=== PATIENT | female | born 1995 | race American Indian/Alaskan Native ===

== ENCOUNTER 2017-07-04 13:00 | Emergency (ER) | payer SELFPAY ==
--- NOTE | 2017-07-04 15:15 | Emergency Department Report ---
Blank Doc - Documentation Documentation: Patient is a 22-year-old Cym[place] female who's complaining of some vaginal bleeding. Patient states yesterday she woke up and the bed was covered in blood. She's had some crampy lower abdominal pain. Patient states she thinks she is approximate 4 months . Patient states she is planning on having an and does not want to keep the baby. Patient has not had an ultrasound during this . Patie abdomen does appear to be well above the umbilicus the patient most likely is greater than 4 months . Ultrasound will be done to confirm gestational age as well as rule out abdomen because he the bleeding that the patient had. Nt
--- NOTE | 2017-07-04 17:18 | Emergency Department Report ---
ED Female HPI - General Chief complaint: Abdominal Pain Stated complaint: ABD PAINS/4-5MONTHS PREG. Time Seen by Provider: 07/04/17 14:59 Source: patient Mode of arrival: Ambulatory Limitations: No Limitations - History of Present Illness Initial comments: Patient is a 22-year-old [place] female who's complaining of some vaginal bleeding. Patient states yesterday she woke up and the bed was covered in blood. She's had some crampy lower abdominal pain. Patient states she thinks she is approximate 4 months . Patient states she is planning on having an and does not want to keep the baby. Patient has not had an ultrasound during this . Patie abdomen does appear to be well above the umbilicus the patient most likely is greater than 4 months . Ultrasound will be done to confirm gestational age as well as rule out abdomen because he the bleeding that the patient had. - Related Data Allergies Allergy/AdvReac Type Severity Reaction Status Date / Time No Known Allergies Allergy Unverified 07/04/17 13:25 ED Review of Systems ROS: Stated complaint: ABD PAINS/4-5MONTHS PREG. Other details as noted in HPI Comment: All other systems reviewed and negative ED Past Medical Hx - Past Medical History Previous Medical History?: No - Surgical History Past Surgical History?: No - Social History Smoking Status: Never Smoker Substance Use Type: None ED Physical Exam - General Limitations: No Limitations General appearance: alert, in no apparent distress - Head Head exam: Present: atraumatic, normocephalic - Eye Eye exam: Present: normal appearance - ENT ENT exam: Present: mucous membranes moist - Neck Neck exam: Present: normal inspection - Respiratory Respiratory exam: Present: normal lung sounds bilaterally. Absent: respiratory distress - Cardiovascular Cardiovascular Exam: Present: regular rate, normal rhythm. Absent: systolic murmur, diastolic murmur, rubs, gallop - GI/Abdominal GI/Abdominal exam: Present: soft, distended, normal bowel sounds - Extremities Exam Extremities exam: Present: normal inspection - Back Exam Back exam: Present: normal inspection - Neurological Exam Neurological exam: Present: alert, oriented X3 - Psychiatric Psychiatric exam: Present: normal affect, normal mood - Skin Skin exam: Present: warm, dry, intact, normal color. Absent: rash ED Course Vital Signs 07/04/17 13:21 Temperature 98.2 F Pulse Rate 104 H Respiratory 16 Rate Blood Pressure 122/75 O2 Sat by Pulse 99 Oximetry ED Medical Decision Making - Lab Data Lab Results 07/04/17 Range/Units 16:12 HCG, Quant < 2 (0-4) mIU/mL - Medical Decision Making Patient is a 22-year-old [place] female with abdominal distention and took a test approximately 2 months ago while incarcerated which was positive she's had some abdominal distention and has some vaginal bleeding several days ago and feels as though she may have miscarried. Patient had ultrasound done here today which was negative as well as a beta Quant that was negative as well. Patient is not patient may have miscarried sometime in the last several months and was having some abnormal menses secondary to transitioning from being tonight. Patient will be discharged home at this time. Critical care attestation.: If time is entered above; I have spent that time in minutes in the direct care of this critically ill patient, excluding procedure time. ED Disposition Clinical Impression: Abdominal distension, Allergic rhinitis, Missed Disposition: - TO HOME OR SELFCARE Is pt being admited?: No Does the pt Need Aspirin: No Condition: Stable Additional Instructions: Please take Claritin for seasonal allergies. Please follow-up with your routine OPERATING SYSTEM PROGRAMMER for further care and evaluation of the abnormal periods that should have any since miscarrying Referrals: PRIMARY CARE [Primary Care Provider] - 3-5 Days
[2017-07-04 17:41] VITALS: BP 121/72
--- NOTE | 2017-07-04 18:00 | Ultrasound Report ---
FINAL REPORT EXAM: US PELVIC COMPLETE HISTORY: vag bleed 1 week ago, unknown gest age TECHNIQUE: Ultrasound of the pelvis using transabdominal and transvaginal imaging PRIORS: None. FINDINGS: Uterus: Uterus is normal in size and normal and homogeneous in echogenicity without focal fibroid formation. The uterus measures 5.9 x 2.4 x 4.1 cm in size. Intrauterine gestation: The endometrial thickness measures 4.0 mm which is normal. No fluid in the endometrial canal is seen. No evidence for intrauterine is identified. Ovaries: Both ovaries appear normal in size and echogenicity with normal blood flow bilaterally. The right ovary measures 4.0 x 2.2 x 3.1 cm and the left ovary measures 3.6 x 1.9 x 3.1 cm in size. There is a complex focus in the right ovary measuring 1.7 cm. Correlation with a quantitative beta HCG level is noted. The ultrasound appearance suggests a hemorrhagic cyst rather than an extra uterine Other: There is no evidence for solid adnexal mass is seen. There is no free fluid in the cul-de-sac. IMPRESSION: 1. No evidence for an intrauterine identified 2. Complex cyst in the right ovary is noted which has the ultrasound appearance of a hemorrhagic cyst. However, correlation with a quantitative beta HCG level would be helpful to exclude totally ectopic
== END 2017-07-04 17:39 | disposition home or self-care (01) ==
LOC: ED 13:00
DX: O02.1 Missed abortion (principal); Z3A.16 16 weeks gestation of pregnancy
CPT/HCPCS: 36415; 76830; 76856; 84702; 99284

== ENCOUNTER 2018-08-22 12:53 | Emergency (ER) | payer SELFPAY | END 2018-08-22 13:54 | disposition left against medical advice (07) | LOC: ED 12:53 | DX: N93.9 Abnormal uterine and vaginal bleeding, unspecified (principal); Z53.21 Procedure and treatment not carried out due to patient leaving prior to being seen by health care provider ==

== ENCOUNTER 2019-05-18 23:07 | Emergency (ER) | payer OTHER ==
[2019-05-19 00:07] VITALS: BP 122/68
[2019-05-19 01:17] LABS: Basophils # (Auto) 0.1 K/mm3 (0.0-0.1); Basophils % (Auto) 0.6 % (0.0-1.8); Eosinophils # (Auto) 0.1 K/mm3 (0.0-0.4); Eosinophils % (Auto) 1.1 % (0.0-4.3); Hematocrit 37.3 % (30.3-42.9); Hemoglobin 12.8 gm/dl (10.1-14.3); Lymphocytes # (Auto) 2.5 K/mm3 (1.2-5.4); Lymphocytes % (Auto) 27.9 % (13.4-35.0); Mean Corpuscular HGB Conc 34 % (30-34); Mean Corpuscular Volume 93 fl (79-97); Monocytes # (Auto) 0.5 K/mm3 (0.0-0.8); Monocytes % (Auto) 6.1 % (0.0-7.3); Platelet Count 240 K/mm3 (140-440); Red Blood Count 4.03 M/mm3 (3.65-5.03); Red Cell Distribution Width 13.6 % (13.2-15.2)
[2019-05-19 01:46] LABS: Alanine Aminotransferase 16 units/L (7-56); Albumin 4.6 g/dL (3.9-5); BUN/Creatinine Ratio 23; Blood Urea Nitrogen 14 mg/dL (7-17); Calcium 10.2 mg/dL (8.4-10.2); Hemolysis Index 7
[2019-05-19 02:41] LABS: Bacteria,Urine 1+ /HPF (Negative); Bilirubin,Urine NEG (Negative); Blood,Urine NEG (Negative); Color,Urine Yellow (Yellow); Mucus,Urine 3+ /HPF; Protein,Urine <15 mg/dL mg/dL (Negative)
== END 2019-05-19 04:18 | disposition left against medical advice (07) ==
LOC: ED 23:07
DX: R10.30 Lower abdominal pain, unspecified (principal); Z53.21 Procedure and treatment not carried out due to patient leaving prior to being seen by health care provider
CPT/HCPCS: 36415; 80053; 81001; 83690; 84703; 85025

== ENCOUNTER 2019-05-30 20:49 | Emergency (ER) | payer OTHER ==
[2019-05-30 20:56] VITALS: BP 111/67
--- NOTE | 2019-05-30 22:26 | Event Note ---
ED Screening Note Date of service: 05/30/19 Time: 22:23 ED Screening Note: 23 y/o female comes to ER for spotting and lower abdominal pain. LMP 02/27/19 Has not started care. This initial assessment/diagnostic orders/clinical plan/treatment(s) is/are subject to change based on patients health status, clinical progression and re- assessment by fellow clinical providers in the ED. Further treatment and workup at subsequent clinical providers discretion. Patient/guardian urged not to elope from the ED as their condition may be serious if not clinically assessed and managed. Initial orders include:
[2019-05-30 22:59] LABS: Basophils % (Auto) 0.4 % (0.0-1.8); Eosinophils # (Auto) 0.1 K/mm3 (0.0-0.4); Eosinophils % (Auto) 1.5 % (0.0-4.3); Hematocrit 37.8 % (30.3-42.9); Hemoglobin 12.7 gm/dl (10.1-14.3); Lymphocytes % (Auto) 23.3 % (13.4-35.0); Mean Corpuscular HGB Conc 34 % (30-34); Mean Corpuscular Volume 93 fl (79-97); Monocytes # (Auto) 0.7 K/mm3 (0.0-0.8); Monocytes % (Auto) 8.2 % (0.0-7.3); Platelet Count 258 K/mm3 (140-440); Red Blood Count 4.06 M/mm3 (3.65-5.03); Red Cell Distribution Width 13.7 % (13.2-15.2)
[2019-05-31 00:17] LABS: Bilirubin,Urine NEG (Negative); Blood,Urine NEG (Negative); Color,Urine Yellow (Yellow); Mucus,Urine 2+ /HPF; Protein,Urine <15 mg/dL mg/dL (Negative); Urobilinogen,Urine < 2.0 mg/dL (<2.0)
--- NOTE | 2019-05-31 00:28 | Ultrasound Report ---
ULTRASOUND OBSTETRIC Indication: spotting and pelvic pain Findings: There is a single, living intrauterine . [place]-rump length = 1.96 cm = 8 weeks, 4 day(s). heart rate is 166 beats per minute. The ovaries are normal. There is no free fluid. Impression: Single, living intrauterine with estimated sonographic age of 8 weeks, 4 day(s). Signer Name: Jabari Maxwell MD Signed: 05/31/2019 12:24 AM Workstation Name: [id number]
--- NOTE | 2019-05-31 00:44 | Emergency Department Report ---
ED Female HPI - General Chief complaint: Abdominal Pain Stated complaint: ABD PAIN/ Time Seen by Provider: 05/30/19 22:22 Source: patient Mode of arrival: Ambulatory Limitations: No Limitations - History of Present Illness Initial comments: 23 y/o female comes to ER for spotting and lower abdominal pain. LMP 02/27/19. G1 Has not started care. MD Complaint: vaginal bleeding, pelvic pain -: This evening - Related Data Previous Rx's Medication Instructions Recorded Last Taken Type Vit-Fe Fumar-FA [ 1 tab PO QDAY #90 tablet 05/31/19 Unknown Rx Vitamin] Allergies Allergy/AdvReac Type Severity Reaction Status Date / Time No Known Allergies Allergy Verified 08/22/18 12:54 ED Review of Systems ROS: Stated complaint: ABD PAIN/ Other details as noted in HPI Comment: All other systems reviewed and negative ED Past Medical Hx - Past Medical History Previous Medical History?: No - Surgical History Past Surgical History?: No - Social History Smoking Status: Never Smoker Substance Use Type: None - Medications Home Medications: Home Medications Medication Instructions Recorded Confirmed Last Taken Type Vit-Fe Fumar-FA [ 1 tab PO QDAY #90 tablet 05/31/19 Unknown Rx Vitamin] ED Physical Exam - General Limitations: No Limitations General appearance: alert, in no apparent distress - Head Head exam: Present: atraumatic, normocephalic - Eye Eye exam: Present: normal appearance - ENT ENT exam: Present: mucous membranes moist - GI/Abdominal GI/Abdominal exam: Present: soft, normal bowel sounds - Neurological Exam Neurological exam: Present: alert, oriented X3, normal gait - Psychiatric Psychiatric exam: Present: normal affect, normal mood - Skin Skin exam: Present: warm, dry, intact, normal color. Absent: rash ED Course Vital Signs 05/30/19 20:55 Temperature 98.4 F Pulse Rate 75 Respiratory 14 Rate Blood Pressure 111/67 O2 Sat by Pulse 100 Oximetry ED Medical Decision Making - Lab Data Result diagrams: 05/30/19 22:37 - Radiology Data Radiology results: report reviewed Patient: IDA DELGADO MR#: [id number] : 1995 Acct:[id number] Age/Sex: 23 / F ADM Date: 05/30/19 Loc: ED Attending Dr: Ordering Physician: ANIVAL ASENCIO Date of Service: 05/30/19 Procedure(s): US OB <= 14 weeks fetus Accession Number(s): [id number] cc: ANIVAL ASENCIO ULTRASOUND OBSTETRIC Indication: spotting and pelvic pain Findings: There is a single, living intrauterine . [place]-rump length = 1.96 cm = 8 weeks, 4 day(s). heart rate is 166 beats per minute. The ovaries are normal. There is no free fluid. Impression: Single, living intrauterine with estimated sonographic age of 8 weeks, 4 day(s). Signer Name: Jabari Maxwell MD Signed: 05/31/2019 12:24 AM Workstation Name: [id number] Transcribed By: SS Dictated By: Jabari Maxwell MD Electronically Authenticated By: Jabari Maxwell MD Signed Date/Time: 05/31/1923 DD/ TD/TT: - Medical Decision Making 23 y/o female comes to ER for spotting and lower abdominal pain. LMP 02/27/19 Has not started care. Critical care attestation.: If time is entered above; I have spent that time in minutes in the direct care of this critically ill patient, excluding procedure time. ED Disposition Clinical Impression: Qualifiers: Weeks of gestation: 8 weeks Qualified Code(s): Z3A.08 - 8 weeks gestation of Disposition: DC-01 TO HOME OR SELFCARE Is pt being admited?: No Does the pt Need Aspirin: No Condition: Stable Instructions: Abdominal Pain (ED) Additional Instructions: You are 8 weeks . Take vitamins daily as prescribed. Follow- up with an LARRY OPERATOR provider I have listed several below for your convenience. Prescriptions: Vit-Fe Fumar-FA [ Vitamin] 1 tab PO QDAY #90 tablet Referrals: PRIMARY CARE, [Primary Care Provider] - 3-5 Days ELLIE SANDERS MD [Staff Physician] - 3-5 Days TORIBIO HARMON MD [Staff Physician] - 3-5 Days TRAY CARIAS MD [Staff Physician] - 3-5 Days
== END 2019-05-31 01:00 | disposition home or self-care (01) ==
LOC: ED 20:49
DX: O46.91 Antepartum hemorrhage, unspecified, first trimester (principal); Z3A.01 Less than 8 weeks gestation of pregnancy; Z88.8 Allergy status to other drugs, medicaments and biological substances
CPT/HCPCS: 36415; 76801; 81001; 84702; 85025; 86850; 86900; 86901

== ENCOUNTER 2019-07-28 18:13 | Emergency (ER) | payer SELFPAY ==
[2019-07-28 18:24] VITALS: BP 125/75
[2019-07-28 18:45] LABS: Hematocrit 33.6 % (30.3-42.9); Hemoglobin 11.5 gm/dl (10.1-14.3); Mean Corpuscular HGB Conc 34 % (30-34); Mean Corpuscular Volume 91 fl (79-97); Platelet Count 225 K/mm3 (140-440); Red Blood Count 3.68 M/mm3 (3.65-5.03); Red Cell Distribution Width 14.3 % (13.2-15.2)
[2019-07-28 18:48] LABS: Bacteria,Urine 1+ /HPF (Negative); Bilirubin,Urine NEG (Negative); Blood,Urine NEG (Negative); Color,Urine Yellow (Yellow); Mucus,Urine 2+ /HPF; Protein,Urine <15 mg/dL mg/dL (Negative); Urobilinogen,Urine < 2.0 mg/dL (<2.0)
--- NOTE | 2019-07-28 19:51 | Emergency Department Report ---
ED HPI - General Chief complaint: Vaginal Bleeding Stated complaint: 18 WKS /BLEEDING/PAIN Time Seen by Provider: 07/28/19 19:45 Source: patient Mode of arrival: Ambulatory Limitations: No Limitations - History of Present Illness Initial comments: Mr Martinez is a 24-year-old -Swedish female who is G1, . Patient presents for abdominal cramping bilateral lower with vaginal spotting x1 episode today. She denies fevers or chills. There is no vaginal bleeding at this time. There is no back pain. There is no vaginal discharge. Patient denies concern for STI. She is adamant about declining vaginal exam. She defers to [facility]. There is no other history. There is no modifying factors. Last menstrual cycle was March 2019. MD Complaint: abdominal pain, vaginal bleeding (spotting ) Onset/Timin -: days(s) Location: abdomen Radiation: LLQ, RLQ Severity: mild Severity scale (0 -10): 2 Quality: cramping Consistency: constant Improves with: none Worsens with: none Associated symptoms: vaginal bleeding, dysuria. denies: nausea/vomiting, vaginal discharge, abdominal pain, headache, rash Vaginal bleeding: light :: Yes Number of weeks : 18 OB History - Current : no complications Last menstrual period: 04/04/19 Pre-jesus care: followed by OB - Related Data : 1 Para: 1 Ab: 0 Previous Rx's Medication Instructions Recorded Last Taken Type Vit-Fe Fumar-FA [ 1 tab PO QDAY #90 tablet 05/31/19 Unknown Rx Vitamin] Acetaminophen [Tylenol] 650 mg PO QID PRN #30 capsule 07/28/19 Unknown Rx cephALEXin [Keflex] 500 mg PO BID 7 Days #14 cap 07/28/19 Unknown Rx Allergies Allergy/AdvReac Type Severity Reaction Status Date / Time No Known Allergies Allergy Verified 08/22/18 12:54 ED Review of Systems ROS: Stated complaint: 18 WKS /BLEEDING/PAIN Other details as noted in HPI Constitutional: denies: chills, fever Eyes: denies: eye pain, eye discharge, vision change ENT: denies: ear pain, throat pain Respiratory: denies: cough, shortness of breath, wheezing Cardiovascular: denies: chest pain, palpitations Endocrine: no symptoms reported Gastrointestinal: abdominal pain. denies: nausea, vomiting, diarrhea, melena Genitourinary: denies: urgency, dysuria, discharge Musculoskeletal: denies: back pain, joint swelling, arthralgia Skin: denies: rash, lesions Neurological: denies: headache, weakness, paresthesias Psychiatric: as per HPI Hematological/Lymphatic: denies: easy bleeding, easy bruising ED Past Medical Hx - Past Medical History Previous Medical History?: No - Surgical History Past Surgical History?: No - Social History Smoking Status: Never Smoker Substance Use Type: None - Medications Home Medications: Home Medications Medication Instructions Recorded Confirmed Last Taken Type Vit-Fe Fumar-FA [ 1 tab PO QDAY #90 tablet 05/31/19 Unknown Rx Vitamin] Acetaminophen [Tylenol] 650 mg PO QID PRN #30 capsule 07/28/19 Unknown Rx cephALEXin [Keflex] 500 mg PO BID 7 Days #14 cap 07/28/19 Unknown Rx ED Physical Exam - General Limitations: No Limitations General appearance: alert, in no apparent distress - Head Head exam: Present: atraumatic, normocephalic - Eye Eye exam: Present: normal appearance, PERRL, EOMI Pupils: Present: normal accommodation - ENT ENT exam: Present: mucous membranes moist - Neck Neck exam: Present: normal inspection, full ROM. Absent: tenderness, meningismus, lymphadenopathy, thyromegaly - Respiratory Respiratory exam: Present: normal lung sounds bilaterally, wheezes. Absent: respiratory distress, rhonchi, stridor - Cardiovascular Cardiovascular Exam: Present: regular rate, normal rhythm. Absent: systolic murmur, diastolic murmur, rubs, gallop - GI/Abdominal GI/Abdominal exam: Present: soft, normal bowel sounds. Absent: distended, tenderness, guarding, rebound, rigid, bruit, hernia - Rectal Rectal exam: Present: deferred - External exam: Absent: erythema - Extremities Exam Extremities exam: Present: normal inspection, full ROM, normal capillary refill. Absent: tenderness, pedal edema, joint swelling, calf tenderness - Back Exam Back exam: Present: normal inspection, full ROM. Absent: tenderness, CVA tenderness (R), muscle spasm, vertebral tenderness - Neurological Exam Neurological exam: Present: alert, oriented X3, CN II-XII intact, normal gait, reflexes normal. Absent: motor sensory deficit - Psychiatric Psychiatric exam: Present: normal affect, normal mood - Skin Skin exam: Present: warm, dry, intact, normal color. Absent: rash ED Course Vital Signs 07/28/19 18:17 Temperature 98.1 F Pulse Rate 117 H Respiratory 16 Rate Blood Pressure 125/75 O2 Sat by Pulse 100 Oximetry ED Medical Decision Making - Lab Data Result diagrams: 07/28/19 18:32 Labs 07/28/19 07/28/19 07/28/19 18:28 18:32 18:32 WBC 10.8 RBC 3.68 Hgb 11.5 Hct 33.6 MCV 91 MCH 31 MCHC 34 RDW 14.3 Plt Count 225 HCG, Quant 63595 H Urine Color Yellow Urine Turbidity Clear Urine pH 6.0 Ur Specific [place] 1.020 Urine Protein <15 mg/dl Urine Glucose (UA) Neg Urine Ketones Neg Urine Blood Neg Urine Nitrite Neg Urine Bilirubin Neg Urine Urobilinogen < 2.0 Ur Leukocyte Esterase Neg Urine WBC (Auto) 1.0 Urine RBC (Auto) 2.0 U Epithel Cells (Auto) 1.0 Urine Bacteria (Auto) 1+ Urine Mucus 2+ - Radiology Data Radiology results: report reviewed, image reviewed Findings Reporting MD: Destiny Mcleod Dictation Time: July 28, 2019 19:52 W[facility] Site Coordinator: Not available Physician Recruiter Date: ULTRASOUND OBSTETRIC INDICATION: Vaginal bleeding and pain in . COMPARISON: Obstetrical ultrasound, 05/30/2019 Findings: There is a single intrauterine . BPD = 3.5 cm = 16 weeks, 5 day(s). Head circumference = 13 cm = 16 weeks, 5 day(s). Abdominal circumference = 11.8 cm = 17 weeks, 4 day(s). Femur length = 2.0 cm = 16 weeks, 0 day(s). Overall estimated sonographic age = 16 weeks, 5 day(s). heart rate is 152 beats per minute. position is breech. Placenta is posterior and grade 0 . Amniotic fluid volume within normal limits. Impression: 1. Single living intrauterine with estimated sonographic age of 16 weeks, 5 day(s). Signer Name: Destiny Mcleod MD Signed: 07/28/2019 7:52 PM Workstation Name: [id number] - Medical Decision Making OB US 16 weeks and 5 days, FHR: 152 , UA: mild leuk, huber, wbc, hr is improved with ivfs given in ed. there is no fever or chills, no n/v, no active bleeding at this time. pt declines vagina exam. plan: keflex, tylenol, follow up with OBGYN in 2-3 days. vital signs improved, pt is tolerating po intake at this time. Critical care attestation.: If time is entered above; I have spent that time in minutes in the direct care of this critically ill patient, excluding procedure time. ED Disposition Clinical Impression: Vaginal bleeding during , Threatened miscarriage, Dysuria Qualifiers: Weeks of gestation: 16 weeks Qualified Code(s): Z3A.16 - 16 weeks gestation of Disposition: DC- TO HOME OR SELFCARE Is pt being admited?: No Does the pt Need Aspirin: No Condition: Stable Instructions: (ED), Threatened Miscarriage (ED) Prescriptions: cephALEXin [Keflex] 500 mg PO BID 7 Days #14 cap Acetaminophen [Tylenol] 650 mg PO QID PRN #30 capsule PRN Reason: pain Referrals: TORIBIO HARMON MD [Staff Physician] - 3-5 Days Forms: Work/School Release Form(ED) Time of Disposition: 21:37
[2019-07-28] MEDS ORDERED: SODIUM CHLORIDE 0.9% 1000 ML 1,000 ML IV ONE (19:57)
--- NOTE | 2019-07-28 20:57 | Ultrasound Report ---
ULTRASOUND OBSTETRIC INDICATION: Vaginal bleeding and pain in . COMPARISON: Obstetrical ultrasound, 05/30/2019 Findings: There is a single intrauterine . BPD = 3.5 cm = 16 weeks, 5 day(s). Head circumference = 13 cm = 16 weeks, 5 day(s). Abdominal circumference = 11.8 cm = 17 weeks, 4 day(s). Femur length = 2.0 cm = 16 weeks, 0 day(s). Overall estimated sonographic age = 16 weeks, 5 day(s). heart rate is 152 beats per minute. position is breech. Placenta is posterior and grade 0 . Amniotic fluid volume within normal limits. Impression: 1. Single living intrauterine with estimated sonographic age of 16 weeks, 5 day(s). Signer Name: Destiny Mcleod MD Signed: 07/28/2019 8:52 PM Workstation Name: [id number]
== END 2019-07-28 21:46 | disposition home or self-care (01) ==
LOC: ED 18:13
DX: O20.0 Threatened abortion (principal); O26.892 Other specified pregnancy related conditions, second trimester; R30.0 Dysuria; Z3A.16 16 weeks gestation of pregnancy; Z79.899 Other long term (current) drug therapy
CPT/HCPCS: 36415; 76805; 81001; 84702; 85027; 99284; J7030

== ENCOUNTER 2019-12-13 22:23 | Outpatient (CLI) | payer OTHER ==
[2019-12-13 22:43] VITALS: BP 111/67
[2019-12-13] MEDS ORDERED: LACTATED RINGERS 1,000 ML ONE (23:13)
[2019-12-13] MEDS ORDERED: LACTATED RINGERS 1,000 ML IV ONE (23:30)
== END 2019-12-14 01:05 | disposition home or self-care (01) ==
LOC: APU 22:23 → TRG 22:23
PROVIDERS: ATTEND Obstetrics & Gynecology
DX: O62.9 Abnormality of forces of labor, unspecified (principal); Z3A.36 36 weeks gestation of pregnancy
CPT/HCPCS: 59025; J7120; 96360

== ENCOUNTER 2019-12-17 21:30 | Outpatient (CLI) | payer OTHER ==
[2019-12-17 21:44] VITALS: BP 135/89
== END 2019-12-17 22:41 | disposition home or self-care (01) ==
LOC: TRG 21:30 → APU 21:35 → TRG 22:41
PROVIDERS: ATTEND Obstetrics & Gynecology
DX: O47.1 False labor at or after 37 completed weeks of gestation (principal); Z3A.37 37 weeks gestation of pregnancy
CPT/HCPCS: 59025; Q0177

== ENCOUNTER 2019-12-26 23:44 | Outpatient (CLI) | payer OTHER ==
[2019-12-27 00:09] VITALS: BP 114/69
[2019-12-27] MEDS ORDERED: LACTATED RINGERS 1,000 ML IV ONE (01:34)
--- NOTE | 2019-12-27 02:46 | Ultrasound Report ---
LIMITED OBSTETRICAL ULTRASOUND WITH BIOPHYSICAL PROFILE. HISTORY: Evaluate well-being. FINDINGS: A limited obstetrical ultrasound demonstrates a single viable intrauterine in the vertex presentation. Amniotic fluid index is normal at 8.6 cm. heart tones are 150 bpm. Biophysical profile is normal at 8/8. IMPRESSION: 1. Normal biophysical profile. 2. presentation is vertex. 3. Amniotic fluid index is 8.6 cm. Signer Name: Rodrigo Nguyen MD Signed: 12/27/2019 2:42 AM Workstation Name: [id number]
== END 2019-12-27 04:25 | disposition home or self-care (01) ==
LOC: TRG 23:44 → APU 23:52 → TRG 12-27 04:25
PROVIDERS: ATTEND Obstetrics & Gynecology
DX: O62.9 Abnormality of forces of labor, unspecified (principal); Z3A.38 38 weeks gestation of pregnancy
CPT/HCPCS: 59025; 76815; 76819; 96360; J7120

== ENCOUNTER 2019-12-30 12:30 | Outpatient (CLI) | payer OTHER ==
[2019-12-30] MEDS ORDERED: PROMETHAZINE 25 MG TAB PO PRN (12:54)
[2019-12-30] MEDS ORDERED: PYRIDOXINE 50 MG TAB PO SCH (13:00)
[2019-12-30 14:07] LABS: Hematocrit 32.6 % (30.3-42.9); Hemoglobin 10.6 gm/dl (10.1-14.3); Mean Corpuscular HGB Conc 32 % (30-34); Mean Corpuscular Volume 88 fl (79-97); Platelet Count 224 K/mm3 (140-440); Red Blood Count 3.72 M/mm3 (3.65-5.03); Red Cell Distribution Width 16.5 % (13.2-15.2)
[2019-12-30 14:13] VITALS: BP 105/61
[2019-12-30 14:22] LABS: Alanine Aminotransferase 8 units/L (7-56); Albumin 3.7 g/dL (3.9-5); Blood Urea Nitrogen 5 mg/dL (7-17); Calcium 9.4 mg/dL (8.4-10.2); Hemolysis Index 0
[2019-12-30 14:24] LABS: BUN/Creatinine Ratio 10
--- NOTE | 2019-12-30 20:57 | Ultrasound Report ---
ULTRASOUND ABDOMEN, COMPLETE INDICATION / CLINICAL INFORMATION: VOMITING/ DIARRHEA. COMPARISON: None available. FINDINGS: PANCREAS: Not well-visualized on this exam. ABDOMINAL AORTA: No significant abnormality. IVC: No significant abnormality. LIVER: No significant abnormality. GALLBLADDER: No significant abnormality. BILE DUCTS: No significant abnormality. Common bile duct measures 2.3 mm. KIDNEYS: Right: No significant abnormality. Left: No significant abnormality. SPLEEN: No significant abnormality. FREE FLUID: None. ADDITIONAL FINDINGS: Intrauterine is noted. Please see dedicated OB ultrasound for further details. IMPRESSION: 1. No significant sonographic abnormality of the abdomen. 2. Intrauterine is noted. Please see dedicated OB ultrasound for further details. Signer Name: Stan Mead MD Signed: 12/30/2019 8:52 PM Workstation Name: [id number]
--- NOTE | 2019-12-30 20:59 | Ultrasound Report ---
ULTRASOUND OBSTETRIC LIMITED ULTRASOUND BIOPHYSICAL PROFILE INDICATION / CLINICAL INFORMATION: bpp. Clinical Gestational Age (GA): 39 weeks. 2 days COMPARISON: None available. FINDINGS: BREATHING MOVEMENT = 2 GROSS BODY MOVEMENT = 2 TONE = 2 QUALITATIVE AMNIOTIC FLUID VOLUME = 2 TOTAL BIOPHYSICAL SCORE = 8/8 HEART RATE (beats per minute): 129 PRESENTATION: Cephalic. ADDITIONAL FINDINGS: None. IMPRESSION: 1. Biophysical Score = 8/8 Signer Name: Stan Mead MD Signed: 12/30/2019 8:55 PM Workstation Name: [id number]
== END 2019-12-30 20:22 | disposition home or self-care (01) ==
LOC: TRG 12:30 → APU 12:31 → TRG 20:22
PROVIDERS: ATTEND Obstetrics & Gynecology
DX: O47.1 False labor at or after 37 completed weeks of gestation (principal); Z3A.40 40 weeks gestation of pregnancy
CPT/HCPCS: 36415; 59025; 76700; 76819; 80053; 82150; 83690; 85027

== ENCOUNTER 2020-11-19 11:58 | Emergency (ER) | payer OTHER ==
[2020-11-19 13:46] LABS: Basophils % (Auto) 0.2 % (0.0-1.8); Eosinophils # (Auto) 0.1 K/mm3 (0.0-0.4); Eosinophils % (Auto) 0.9 % (0.0-4.3); Hemoglobin 13.1 gm/dl (10.1-14.3); Lymphocytes # (Auto) 1.8 K/mm3 (1.2-5.4); Lymphocytes % (Auto) 27.4 % (13.4-35.0); Mean Corpuscular HGB Conc 34 % (30-34); Mean Corpuscular Volume 93 fl (79-97); Monocytes # (Auto) 0.5 K/mm3 (0.0-0.8); Monocytes % (Auto) 8.2 % (0.0-7.3); Platelet Count 213 K/mm3 (140-440); Red Blood Count 4.19 M/mm3 (3.65-5.03); Red Cell Distribution Width 14.6 % (13.2-15.2)
[2020-11-19 14:02] LABS: Alanine Aminotransferase 27 units/L (7-56); Albumin 4.5 g/dL (3.9-5); Blood Urea Nitrogen 7 mg/dL (7-17); Calcium 9.1 mg/dL (8.4-10.2); Hemolysis Index 4
[2020-11-19 14:04] LABS: BUN/Creatinine Ratio 18
[2020-11-19 14:08] LABS: Bilirubin,Urine NEG (Negative); Blood,Urine NEG (Negative); Color,Urine Yellow (Yellow); Mucus,Urine FEW /HPF; Protein,Urine <15 mg/dL mg/dL (Negative); Urobilinogen,Urine < 2.0 mg/dL (<2.0); WBC,Urine < 1.0 /HPF (0.0-6.0)
--- NOTE | 2020-11-19 14:33 | Emergency Department Report ---
ED Abdominal Pain HPI - General Chief Complaint: Abdominal Pain Stated Complaint: STOMACH PAINS Time Seen by Provider: 11/19/20 13:26 Source: patient Mode of arrival: Ambulatory Limitations: No Limitations - History of Present Illness Initial Comments: Is a pleasant 25-year-old female who presents the emergency department chief complaint of lower abdominal pain with associated nausea over the past week. She reports anytime she eats she gets the pain. She denies any hematemesis, melena, fever, chills, night sweats, headache, dizziness, blurry vision, vomiting, diarrhea, chest pain, shortness of breath, weakness or any other associated symptoms. She denies any known past medical history, current medication use or known allergies to medications. She denies any sick contacts. She denies any known past medical history, current medication use or known allergies to medications. She reports she has been eating nuts and granola bars and the only thing that did not bother her stomach. - Related Data Previous Rx's Medication Instructions Recorded Last Taken Type Vit-Fe Fumar-FA [ 1 tab PO QDAY #90 tablet 05/31/19 Unknown Rx Vitamin] Acetaminophen [Tylenol] 650 mg PO QID PRN #30 capsule 07/28/19 Unknown Rx cephALEXin [Keflex] 500 mg PO BID 7 Days #14 cap 07/28/19 Unknown Rx Vit-Fe Fumar-FA [ 1 tab PO QDAY #30 tablet 11/19/20 Unknown Rx Vitamin] Allergies Allergy/AdvReac Type Severity Reaction Status Date / Time No Known Allergies Allergy Verified 09/25/19 21:53 ED Review of Systems ROS: Stated complaint: STOMACH PAINS Other details as noted in HPI Comment: All other systems reviewed and negative Constitutional: denies: chills, fever Eyes: denies: eye pain, eye discharge, vision change ENT: denies: ear pain, throat pain Respiratory: denies: cough, shortness of breath, wheezing Cardiovascular: denies: chest pain, palpitations Endocrine: no symptoms reported Gastrointestinal: as per HPI, abdominal pain, nausea. denies: diarrhea Genitourinary: denies: urgency, dysuria, discharge Musculoskeletal: denies: back pain, joint swelling, arthralgia Skin: denies: rash, lesions Neurological: denies: headache, weakness, paresthesias Psychiatric: denies: anxiety, depression Hematological/Lymphatic: denies: easy bleeding, easy bruising ED Past Medical Hx - Past Medical History Previous Medical History?: No Hx Hypertension: No Hx Diabetes: No Hx Deep Vein Thrombosis: No Hx Renal Disease: No Hx Sickle Cell Disease: No Hx Seizures: No Hx Asthma: No Hx HIV: No - Surgical History Past Surgical History?: No - Social History Smoking Status: Never Smoker - Medications Home Medications: Home Medications Medication Instructions Recorded Confirmed Last Taken Type Vit-Fe Fumar-FA [ 1 tab PO QDAY #90 tablet 05/31/19 Unknown Rx Vitamin] Acetaminophen [Tylenol] 650 mg PO QID PRN #30 capsule 07/28/19 Unknown Rx cephALEXin [Keflex] 500 mg PO BID 7 Days #14 cap 07/28/19 Unknown Rx Vit-Fe Fumar-FA [ 1 tab PO QDAY #30 tablet 11/19/20 Unknown Rx Vitamin] ED Physical Exam - General Limitations: No Limitations General appearance: alert, in no apparent distress - Head Head exam: Present: atraumatic, normocephalic - Eye Eye exam: Present: normal appearance, PERRL, EOMI Pupils: Present: normal accommodation - ENT ENT exam: Present: normal exam, normal orophraynx, mucous membranes moist - Neck Neck exam: Present: normal inspection, full ROM. Absent: tenderness, meningismus - Respiratory Respiratory exam: Present: normal lung sounds bilaterally. Absent: respiratory distress, wheezes, rales, rhonchi, stridor - Cardiovascular Cardiovascular Exam: Present: regular rate, normal rhythm, normal heart sounds. Absent: systolic murmur, diastolic murmur, rubs, gallop - GI/Abdominal GI/Abdominal exam: Present: soft, tenderness (Mild tenderness palpation suprapubic and left lower quadrant, no rebound or guarding, negative McBurney's point tenderness), normal bowel sounds. Absent: distended, guarding, rebound, rigid - Extremities Exam Extremities exam: Present: normal inspection, full ROM, normal capillary refill. Absent: tenderness - Back Exam Back exam: Present: normal inspection, full ROM. Absent: tenderness, CVA tenderness (R), CVA tenderness (L) - Neurological Exam Neurological exam: Present: alert, oriented X3, CN II-XII intact, normal gait - Psychiatric Psychiatric exam: Present: normal affect, normal mood - Skin Skin exam: Present: warm, dry, intact, normal color. Absent: rash ED Medical Decision Making - Lab Data Result diagrams: 11/19/20 13:13 11/19/20 13:13 Lab Results 11/19/20 11/19/20 11/19/20 Range/Units 13:13 13:13 14:24 WBC 6.5 (4.5-11.0) K/mm3 RBC 4.19 (3.65-5.03) M/mm3 Hgb 13.1 (10.1-14.3) gm/dl Hct 39.0 (30.3-42.9) % MCV 93 (79-97) fl MCH 31 (28-32) pg MCHC 34 (30-34) % RDW 14.6 (13.2-15.2) % Plt Count 213 (140-440) K/mm3 Lymph % (Auto) 27.4 (13.4-35.0) % [place] % (Auto) 8.2 H (0.0-7.3) % Eos % (Auto) 0.9 (0.0-4.3) % Baso % (Auto) 0.2 (0.0-1.8) % Lymph # (Auto) 1.8 (1.2-5.4) K/mm3 [place] # (Auto) 0.5 (0.0-0.8) K/mm3 Eos # (Auto) 0.1 (0.0-0.4) K/mm3 Baso # (Auto) 0.0 (0.0-0.1) K/mm3 Seg Neutrophils % 63.3 (40.0-70.0) % Seg Neutrophils # 4.1 (1.8-7.7) K/mm3 Sodium 137 (137-145) mmol/L Potassium 4.3 (3.6-5.0) mmol/L Chloride 104.1 (98-107) mmol/L Carbon Dioxide 21 L (22-30) mmol/L Anion Gap 16 mmol/L BUN 7 (7-17) mg/dL Creatinine 0.4 L (0.6-1.2) mg/dL Estimated GFR > 60 ml/min BUN/Creatinine Ratio 18 % Glucose 87 (65-100) mg/dL Calcium 9.1 (8.4-10.2) mg/dL Total Bilirubin 0.50 (0.1-1.2) mg/dL AST 20 (5-40) units/L ALT 27 (7-56) units/L Alkaline Phosphatase 49 (35-129) units/L Total Protein 7.6 (6.3-8.2) g/dL Albumin 4.5 (3.9-5) g/dL Albumin/Globulin Ratio 1.5 % HCG, Quant (0-4) mIU/mL Urine Color (Yellow) Urine Turbidity (Clear) Urine pH (5.0-7.0) Ur Specific [place] (1.003-1.030) Urine Protein (Negative) mg/dL Urine Glucose (UA) (Negative) mg/dL Urine Ketones (Negative) mg/dL Urine Blood (Negative) Urine Nitrite (Negative) Urine Bilirubin (Negative) Urine Urobilinogen (<2.0) mg/dL Ur Leukocyte Esterase (Negative) Urine WBC (Auto) (0.0-6.0) /HPF Urine RBC (Auto) (0.0-6.0) /HPF U Epithel Cells (Auto) (0-13.0) /HPF Urine Mucus /HPF Urine HCG, Qual Positive A (Negative) 11/19/20 11/19/20 Range/Units 15:36 Unknown WBC (4.5-11.0) K/mm3 RBC (3.65-5.03) M/mm3 Hgb (10.1-14.3) gm/dl Hct (30.3-42.9) % MCV (79-97) fl MCH (28-32) pg MCHC (30-34) % RDW (13.2-15.2) % Plt Count (140-440) K/mm3 Lymph % (Auto) (13.4-35.0) % [place] % (Auto) (0.0-7.3) % Eos % (Auto) (0.0-4.3) % Baso % (Auto) (0.0-1.8) % Lymph # (Auto) (1.2-5.4) K/mm3 [place] # (Auto) (0.0-0.8) K/mm3 Eos # (Auto) (0.0-0.4) K/mm3 Baso # (Auto) (0.0-0.1) K/mm3 Seg Neutrophils % (40.0-70.0) % Seg Neutrophils # (1.8-7.7) K/mm3 Sodium (137-145) mmol/L Potassium (3.6-5.0) mmol/L Chloride (98-107) mmol/L Carbon Dioxide (22-30) mmol/L Anion Gap mmol/L BUN (7-17) mg/dL Creatinine (0.6-1.2) mg/dL Estimated GFR ml/min BUN/Creatinine Ratio % Glucose (65-100) mg/dL Calcium (8.4-10.2) mg/dL Total Bilirubin (0.1-1.2) mg/dL AST (5-40) units/L ALT (7-56) units/L Alkaline Phosphatase (35-129) units/L Total Protein (6.3-8.2) g/dL Albumin (3.9-5) g/dL Albumin/Globulin Ratio % HCG, Quant 29116 H (0-4) mIU/mL Urine Color Yellow (Yellow) Urine Turbidity Clear (Clear) Urine pH 6.0 (5.0-7.0) Ur Specific [place] 1.017 (1.003-1.030) Urine Protein <15 mg/dl (Negative) mg/dL Urine Glucose (UA) Neg (Negative) mg/dL Urine Ketones Neg (Negative) mg/dL Urine Blood Neg (Negative) Urine Nitrite Neg (Negative) Urine Bilirubin Neg (Negative) Urine Urobilinogen < 2.0 (<2.0) mg/dL Ur Leukocyte Esterase Neg (Negative) Urine WBC (Auto) < 1.0 (0.0-6.0) /HPF Urine RBC (Auto) 1.0 (0.0-6.0) /HPF U Epithel Cells (Auto) 1.0 (0-13.0) /HPF Urine Mucus Few /HPF Urine HCG, Qual (Negative) - Radiology Data Radiology results: report reviewed, image reviewed ULTRASOUND OBSTETRIC INDICATION / CLINICAL INFORMATION: abdominal pain, hcg +, quant pending. TECHNIQUE: Transabdominal and Transvaginal. COMPARISON: None available. FINDINGS: GESTATIONAL SAC: Well-defined oval shape and intrauterine in location. YOLK SAC: No significant abnormality. EMBRYO/FETUS: No significant abnormality. - [place]-Rump Length = 1.0 cm = 7.0 weeks.days - Heart Rate, beats per minute (if present) = 127 ADNEXA: No significant abnormality. FREE FLUID: None. ADDITIONAL FINDINGS: None. IMPRESSION: 1. Single, living intrauterine with estimated sonographic age of 7.0 weeks.days. Signer Name: Casey Laboy MD Signed: 11/19/2020 5:47 PM Workstation Name: [id number] Transcribed By: YELENA Dictated By: Casey Laboy MD Electronically Authenticated By: Casey Laboy MD Signed Date/Time: 11/19/20 9611 - Medical Decision Making Patient is nontoxic in no acute stress. Vital signs are stable. She reports some vaginal spotting and had a positive test which was not known to her. She had some mild lower abdominal tenderness. Her ultrasound showed a viable intrauterine . On chart review the patient's blood type was O+ and no RhoGam was indicated. Patient's urine and lab work was otherwise unremarkable. I recommended Tylenol for the cramping vitamins, pelvic rest and outpatient follow-up with her [facility]. She was instructed to return to the ER with any changing or worsening symptoms. She verbalized understanding of the diagnosis, treatment plan and follow-up instructions and all of her questions were answered. - Differential Diagnosis Threatened miscarriage, UTI, ectopic Critical care attestation.: If time is entered above; I have spent that time in minutes in the direct care of this critically ill patient, excluding procedure time. ED Disposition Clinical Impression: Threatened Disposition: DC-01 TO HOME OR SELFCARE Is pt being admited?: No Condition: Stable Instructions: Abdominal Pain (ED), Threatened Miscarriage Prescriptions: Vit-Fe Fumar-FA [ Vitamin] 1 tab PO QDAY #30 tablet Referrals: PRIMARY CARE, [Primary Care Provider] - 3-5 Days [facility] [Provider Group] - 3-5 Days Time of Disposition: 18:15
[2020-11-19 15:11] LABS: HCG Qualitative,Urine Positive (Negative)
--- NOTE | 2020-11-19 17:51 | Ultrasound Report ---
ULTRASOUND OBSTETRIC INDICATION / CLINICAL INFORMATION: abdominal pain, hcg +, quant pending. TECHNIQUE: Transabdominal and Transvaginal. COMPARISON: None available. FINDINGS: GESTATIONAL SAC: Well-defined oval shape and intrauterine in location. YOLK SAC: No significant abnormality. EMBRYO/FETUS: No significant abnormality. - [place]-Rump Length = 1.0 cm = 7.0 weeks.days - Heart Rate, beats per minute (if present) = 127 ADNEXA: No significant abnormality. FREE FLUID: None. ADDITIONAL FINDINGS: None. IMPRESSION: 1. Single, living intrauterine with estimated sonographic age of 7.0 weeks.days. Signer Name: Casey Laboy MD Signed: 11/19/2020 5:47 PM Workstation Name: [email or web address]
--- NOTE | 2020-11-19 18:09 | Ultrasound Report ---
Please see combined transabdominal/transvaginal OB pelvic ultrasound report from the same date. Signer Name: Jeancarlos Ramirez MD Signed: 11/19/2020 6:05 PM Workstation Name: [id number]
== END 2020-11-19 19:06 | disposition left against medical advice (07) ==
LOC: ED 11:58
DX: O20.0 Threatened abortion (principal); Z3A.01 Less than 8 weeks gestation of pregnancy
CPT/HCPCS: 36415; 76801; 76817; 80053; 81001; 81025; 84702; 85025; 99283

== ENCOUNTER 2021-07-04 02:55 | Inpatient (IN) | payer OTHER ==
[2021-07-04] MEDS ORDERED: AMPICILLIN/NS 2 GM/100 ML 2 GM/100 ML BAG IV ONE (04:49)
[2021-07-04] MEDS ORDERED: fentaNYL 100 MCG/2 ML INJ IV PRN (04:49)
[2021-07-04] MEDS ORDERED: miSOPROStol 200 MCG TAB PR PRN (04:49)
[2021-07-04] MEDS ORDERED: OXYTOCIN 10 UNIT/1 ML INJ IM PRN (04:49)
[2021-07-04] MEDS ORDERED: LIDOCAINE (2%) 20 MG/1 ML VIAL 20 ML MDV INFILTRATI ONE (04:49)
[2021-07-04] MEDS ORDERED: ACETAMINOPHEN 325 MG TAB PO PRN (04:49)
[2021-07-04] MEDS ORDERED: MINERAL OIL 30 ML ORAL LIQD PO PRN (04:49)
[2021-07-04] MEDS ORDERED: ePHEDrine SULFATE 50 MG/1 ML INJ IV PRN (04:49)
[2021-07-04] MEDS ORDERED: NALOXONE 0.4 MG/1 ML INJ IV PRN (04:49)
[2021-07-04] MEDS ORDERED: ONDANSETRON 4 MG/2 ML INJ IV PRN ×2 (04:49→08:00)
[2021-07-04] MEDS ORDERED: LOPERAMIDE 2 MG CAP PO PRN (04:49)
[2021-07-04] MEDS ORDERED: METHYLERGONOVINE MALEATE 0.2 MG/ML VIAL IM PRN (04:49)
[2021-07-04] MEDS ORDERED: CARBOPROST TROMETHAMINE 250 MCG/1 ML INJ IM PRN (04:49)
[2021-07-04] MEDS ORDERED: TERBUTALINE 1 MG/1 ML INJ SUB-Q PRN (04:49)
[2021-07-04] MEDS ORDERED: BUTORPHANOL 2 MG/1 ML INJ IV PRN (04:49)
[2021-07-04] MEDS ORDERED: OXYTOCIN DRIP 30 UNITS/500 ML BAG IV SCH (05:00)
[2021-07-04] MEDS ORDERED: LACTATED RINGERS 1,000 ML IV SCH (05:00)
--- NOTE | 2021-07-04 05:02 | History and Physical Report ---
History of Present Illness Date of examination: 07/04/21 Date of admission: 07/04/21 03:55 Chief complaint: contractions History of present illness: Pt is at 39 3/7 wls by edc given to her at [facility] of 07/08/21 in active labor going from 4cm to now 8cm. Reports no complications this . Past History Past Medical History: no pertinent history Past Surgical History: no surgical history PROCESS ENG History: abnormal PAP smear Social history: no significant social history - Obstetrical History Expected Date of Delivery: 07/08/21 Actual Gestation: 39 Week(s) 3 Day(s) : 2 Para: 1 Number of Living Children: 1 Medications and Allergies Allergies Allergy/AdvReac Type Severity Reaction Status Date / Time No Known Allergies Allergy Verified 09/25/19 21:53 Home Medications Medication Instructions Recorded Confirmed Last Taken Type Vit-Fe Fumar-FA [ 1 tab PO QDAY #90 tablet 05/31/19 Unknown Rx Vitamin] Acetaminophen [Tylenol] 650 mg PO QID PRN #30 capsule 07/28/19 Unknown Rx cephALEXin [Keflex] 500 mg PO BID 7 Days #14 cap 07/28/19 Unknown Rx Vit-Fe Fumar-FA [ 1 tab PO QDAY #30 tablet 11/19/20 Unknown Rx Vitamin] Active Meds: Active Medications Acetaminophen (Acetaminophen 325 Mg Tab) 650 mg PO Q4H PRN PRN Reason: Pain, Mild (1-3) Butorphanol Tartrate (Butorphanol 2 Mg/1 Ml Inj) 1 mg IV Q2H PRN PRN Reason: Pain, Moderate(4-6) LABOR PAIN Carboprost Tromethamine (Carboprost Tromethamine 250 Mcg/1 Ml Inj) 250 mcg IM ONCE PRN PRN Reason: Uterine Bleeding Ephedrine Sulfate (Ephedrine Sulfate 50 Mg/1 Ml Inj) 10 mg IV Q2M PRN PRN Reason: Hypotension Fentanyl (Fentanyl 100 Mcg/2 Ml Inj) 100 mcg IV Q2H PRN PRN Reason: Pain,Severe (7-10) LABOR PAIN Lactated Ringer's (Lactated Ringers) 1,000 mls @ 125 mls/hr IV DIRECT SHANT Oxytocin/Sodium Chloride (Pitocin/Ns 30 Unit/500ml) 30 units in 500 mls @ 40 mls/hr IV TITR SHANT; Protocol Ampicillin Sodium (Ampicillin/Ns 1 Gm/50 Ml) 1 gm in 50 mls @ 100 mls/hr IV Q4H SHANT; Protocol Ampicillin Sodium (Ampicillin/Ns 2 Gm/100 Ml) 2 gm in 100 mls @ 100 mls/hr IV ONCE ONE; Protocol Stop: 07/04/21 05:48 Lidocaine (Lidocaine (2%) 20 Mg/1 Ml Vial 20 Ml Mdv) 20 ml INFILTRATI ONCE ONE Stop: 07/04/21 04:50 Loperamide HCl (Loperamide 2 Mg Cap) 2 mg PO ONCE PRN PRN Reason: give with Hemabate Methylergonovine Maleate (Methylergonovine Maleate 0.2 Mg/Ml Vial) 0.2 mg IM ONCE PRN PRN Reason: Uterine Bleeding Mineral Oil (Mineral Oil 30 Ml Oral Liqd) 30 ml PO QHS PRN PRN Reason: Constipation Misoprostol (Misoprostol 200 Mcg Tab) 800 mcg MO ONCE PRN PRN Reason: Uterine Bleeding Naloxone HCl (Naloxone 0.4 Mg/1 Ml Inj) 0.1 mg IV Q2MIN PRN PRN Reason: Res Rate </= 8 or 02 SAT < 92% Ondansetron HCl (Ondansetron 4 Mg/2 Ml Inj) 4 mg IV Q8H PRN PRN Reason: Nausea And Vomiting Oxytocin (Oxytocin 10 Unit/1 Ml Inj) 10 unit IM ONCE PRN PRN Reason: Uterine Bleeding Terbutaline Sulfate (Terbutaline 1 Mg/1 Ml Inj) 0.25 mg SUB-Q ONCE PRN PRN Reason: Hyperstimulation/Hypertonicity - Vital Signs Vital signs: Vital Signs Pulse Pulse Ox 96 H 100 07/04/21 03:45 07/04/21 03:45 Temp Pulse Resp BP Pulse Ox 89 132/74 99 07/04/21 04:18 07/04/21 04:18 07/04/21 04:15 - Physical Exam Lungs: Positive: Normal air movement Abdomen: Positive: normal appearance, soft. Negative: distention, tenderness, guarding Genitourinary (Female): Positive: normal external genitalia, normal perenium, other (no lesions) - Obstetrical FHR: auscultation normal Cervical Dilatation: 8 Cervical Effacement Percentage: 90 station: -1 Uterine Contraction Pattern: Regular Uterine Tone Measurement Phase: Resting Uterine Contraction Intensity: Moderate Results All other labs normal. Assessment and Plan - Patient Problems (1) Active labor at term Current Visit: Yes Status: Acute Plan to address problem: -admit -antibx as GBS unknown -get records from [facility] -epidural -anticipate
[2021-07-04 05:13] LABS: Hematocrit 34.8 % (30.3-42.9); Hemoglobin 11.3 gm/dl (10.1-14.3); Mean Corpuscular HGB Conc 32 % (30-34); Mean Corpuscular Volume 89 fl (79-97); Platelet Count 195 K/mm3 (140-440); Red Cell Distribution Width 15.2 % (13.2-15.2)
[2021-07-04 05:37] LABS: Mean Platelet Volume 10.4 fl (6-12)
[2021-07-04 05:38] LABS: Hepatitis C Virus Antibody Non-Reactive (NonReactive)
[2021-07-04] MEDS ORDERED: IBUPROFEN 800 MG TAB ONE (07:41)
--- NOTE | 2021-07-04 08:13 | Procedure Note ---
OB Delivery Note - Delivery Date of Delivery: 07/04/21 Surgeon: ANDREW DWYER Estimated blood loss: other (350ml) - Vaginal Delivery presentation: vertex Delivery position: OA Intrapartum events: precipitous labor- <3hr Delivery induction: none Delivery augmentation: rupture of membranes Delivery monitor: external FHT Route of delivery: Delivery placenta: spontaneous Delivery cord: 3 umbilical vessels Episiotomy: none Delivery laceration: 1st degree (bilaterlly periurethral and hemostatic so no repair done) Anesthesia: none Delivery comments: Pt progressed from 4cm to 8cm in 1 hour and from 8cm to complete in 1 hr. Delivery as above. Infant's head delivered w/o difficulty over an intact perineum. Ant shoulder and rest of delivered w/o difficulty. Inflant placed on bed. and bulp suctioned. Cord clamped x2 and cut x1 and infant taken to [place] warmer. Cord blood collected. Placenta delivered spontaneously intact. Mother and stable in LDR. Lacerations as above. - A at 1 minute: 8 at 5 minutes: 9 Infant Gender: Male
[2021-07-04] MEDS ORDERED: PROMETHAZINE 25 MG TAB PO PRN (09:00)
[2021-07-04] MEDS ORDERED: diphenhydrAMINE 25 MG CAP PO PRN (09:00)
[2021-07-04] MEDS ORDERED: KETOROLAC 30 MG/1 ML INJ IV PRN (09:00)
[2021-07-04] MEDS ORDERED: AMPICILLIN/NS 1 GM/50 ML 1 GM/50 ML BAG IV SCH (09:00)
[2021-07-04] MEDS ORDERED: WITCH HAZEL/ GLYCERIN PAD TP PRN (09:00)
[2021-07-04] MEDS ORDERED: PROMETHAZINE 25 MG RECT SUPP PR PRN (09:00)
[2021-07-04] MEDS ORDERED: LANOLIN/ZINC/DIMETHICONE (LANSINOH) 7 GM TP PRN (09:00)
--- NOTE | 2021-07-04 11:30 | Progress Note ---
Assessment and Plan Reports ambulating, voiding, and eating without difficulty. education and support given. POC with precautions reviewed with pt. Pt verbalizes understanding. - Patient Problems (1) (normal spontaneous vaginal delivery) Current Visit: Yes Status: Acute Plan to address problem: continue pathway Subjective - Subjective Date of service: 07/04/21 Principal diagnosis: s/p Patient reports: appetite normal, voiding normally, pain well controlled, ambulating normally : doing well Objective - Vital Signs Latest vital signs: Vital Signs Pulse BP Pulse Ox Pulse Ox 07/04/21 10:00 97 07/04/21 08:32 87 119/66 07/04/21 08:26 52 L 88 07/04/21 08:25 94 07/04/21 08:20 32 L 85 07/04/21 08:17 82 118/68 07/04/21 08:15 42 L 86 07/04/21 08:14 85 07/04/21 08:10 84 81 L 07/04/21 08:09 59 L 87 07/04/21 08:04 75 84 07/04/21 08:02 94 H 117/64 07/04/21 07:58 89 07/04/21 07:55 65 91 07/04/21 07:53 84 07/04/21 07:47 52 L 86 07/04/21 07:46 52 L 116/67 91 07/04/21 07:42 77 L 07/04/21 07:37 79 L 07/04/21 07:36 73 83 L 07/04/21 07:32 64 110/64 94 07/04/21 07:31 61 83 L 07/04/21 07:27 109 H 94 07/04/21 07:24 94 H 25 L 07/04/21 07:21 80 L 07/04/21 07:17 100 H 107/65 07/04/21 07:14 88 07/04/21 07:13 101 H 79 L 07/04/21 07:09 37 L 0 L 07/04/21 06:49 113 H 84 07/04/21 06:44 56 L 0 L 07/04/21 06:42 79 83 L 07/04/21 05:03 100 07/04/21 04:18 89 132/74 07/04/21 04:15 96 H 99 07/04/21 04:10 103 H 100 07/04/21 04:05 95 H 99 07/04/21 04:00 104 H 98 07/04/21 03:55 96 H 99 07/04/21 03:50 97 H 99 07/04/21 03:45 96 H 100 Intake and Output 07/03/21 07/04/21 07/04/21 23:59 07:59 15:59 Other: Weight 164 lb Estimated Blood Loss 100 Patient Weight 07/04/21 23:59 Weight 164 lb - Exam Breasts: Present: normal, Cardiovascular: Present: Regular rate Lungs: Present: Normal air movement Abdomen: Present: normal appearance, soft. Absent: distention, tenderness, guarding Uterus: Present: normal, firm, fundal height at umbilicus Extremities: Present: normal
[2021-07-04] MEDS ORDERED: ACETAMINOPHEN 500 MG TAB PO PRN (12:00)
[2021-07-04] MEDS: IBUPROFEN 800 MG TAB PO PRN (14:06)
[2021-07-04 20:55] LABS: Hematocrit 30.9 % (30.3-42.9)
[2021-07-04] MEDS ORDERED: MAGNESIUM HYDROXIDE (MOM) ORAL LIQD UDC PO PRN (22:00)
--- NOTE | 2021-07-05 06:32 | Discharge Summary ---
Providers - Providers Date of Admission: 07/04/21 07:00 Date of discharge: 07/05/21 Attending physician: ANDREW DWEYR Primary care physician: [facility] Hospitalization Reason for admission: active labor Delivery: Episiotomy: none Laceration: 1st degree (No repair needed. ) Other procedures: none complications: none Discharge diagnosis: IUP at term delivered baby: male Hospital course: S: Pt doing well. Ambulating, voiding, and passing flatus okay. BC: Depo. O: VSS. Fundus firm, minimal bleeding noted. H/H 10.0/30.9. A: 26 y.o. s/p . In good condition . care at [place]. P: Discharge home with instructions. Pt wishes to follow up with our office for care. Number and address for our office will be provided on discharge instructions. Pt to schedule a visit in the office in 4-6 weeks. Condition at discharge: Good Disposition: 01 HOME / SELF CARE / HOMELESS Plan - Discharge Medications Prescriptions: Lidocain2.5%/Prilocai2.5% [Emla] 1 applic TP ONCE #1 tube - Provider Discharge Summary Activity: routine, no sex for 6 weeks, no heavy lifting 4 weeks, no strenuous exercise Diet: routine Instructions: routine Additional instructions: [] Smoking cessation referral if applicable(refer to patient education folder for contact #) [] Refer to [facility] Booklet Call your doctor immediately for: * Fever > 100.5 * Heavy vaginal bleeding ( >1 pad per hour) * Severe persistent headache * Shortness of breath * Reddened, hot, painful area to leg or breast * Drainage or odor from incision. * Keep incision clean and dry at all times and follow doctor's instructions regarding bathing/showering - Follow up plan Follow up: PRIMARY CAREMD [Primary Care Provider] - 7 Days ANDREW DWYER MD [Staff Physician] - 7 Days (- Congratulations on the of your baby. - Please schedule your visit in our office in 4-6 weeks. - Please schedule your son's circumcision in the office in 1 week. - You have been prescribed EMLA cream for your son's circumcision. Please do not use this cream at home, but bring it with your to your son's circumcision appointment. - Should you have any questions or concern after discharge, please call our office at [phone].)
[2021-07-05] MEDS: IBUPROFEN 800 MG TAB PO PRN (09:42)
[2021-07-05 13:43] VITALS: BP 107/64
== END 2021-07-05 13:51 | disposition home or self-care (01) | DRG 775 ==
LOC: TRG 02:55 → APU 03:04 → LD 03:55 → TRG 03:55 → OBSVTOIN 07:00 → OB 09:26
PROVIDERS: ADMIT Obstetrics & Gynecology; ATTEND Obstetrics & Gynecology
PROC: 10E0XZZ Delivery of Products of Conception, External Approach (ICD-10-PCS; principal; 2021-07-04)
DX: O62.3 Precipitate labor (principal); Z37.0 Single live birth; Z20.822 Contact with and (suspected) exposure to COVID-19; Z3A.39 39 weeks gestation of pregnancy; O70.0 First degree perineal laceration during delivery
CPT/HCPCS: 36415; 85014; 85018; 85027; 85660; 86592; 86706; 86803; 86850; 86900; 86901; 87806; 88307; 99211; G0378; G0463; J2590; U0003